=== PATIENT | female | born 1990 | race Caucasian/White ===

== ENCOUNTER 2019-07-13 19:32 | Observation (INO) | payer BC, SELFPAY ==
[2019-07-13 20:15] VITALS: BMI 30.9
--- NOTE | 2019-07-13 22:40 | OBADM ---
This patient, Payton Gonsalves, admitted to the OB room Labor/Delivery/Recovery 105 for observation. Patient/family oriented to hospital policies and general routines including ID bracelet, bed and alarms, visiting hours, pain management, procedures, bathroom and other care routines, personal items, smoking policy, room service/diet, and visiting hours. Patient/Family are encouraged to report perceived risks to care and to ask questions if they do not understand what they are told or what they should do.
--- NOTE | 2019-07-15 13:25 | PM.OBTRLD ---
OB - Triage/Final Diagnosis Visit Information Reason for evaluation: threatened labor
== END 2019-07-13 22:15 | disposition home or self-care (01) ==
PROVIDERS: Admitting Provider Obstetrics & Gynecology; Visit Provider Obstetrics & Gynecology
DX: O47.9 False labor, unspecified (principal); Z3A.00 Weeks of gestation of pregnancy not specified
CPT/HCPCS: G0378; G0379

== ENCOUNTER 2019-07-15 00:03 | Inpatient (IN) | payer BC, SELFPAY ==
[2019-07-15] VITALS (31 sets, daily range): BP systolic 112–134; BP diastolic 53–105; PULSE 70–110; RESP 14–18; TEMP 36.9–37.4; O2SAT 98–100
[2019-07-15] MEDS: LACTATED RINGERS 1,000 ML 125 ML IV CONT ×2 (00:30→01:00)
[2019-07-15 00:41] LABS: Basophils Percent Auto 0.2 % (0.2-1.2); Eosinophils Absolute Auto 0.2 K/mm3 (0-0.3); Eosinophils Percent Auto 1.5 % (0-4.4); Hematocrit 32.5 % (37.0-47.0); Hemoglobin 10.7 g/dL (12.0-15.0); Immature Granulocyte Absolute 0.03 K/mm3 (0.00-0.031); Immature Granulocyte Percent A 0.3 % (0-0.5); Lymphocytes Percent Auto 18.3 % (18.3-44.2); Mean Corpuscular HGB Conc 32.9 g/dl (32-36); Mean Corpuscular Hemoglobin 28.5 pg (26-34); Mean Corpuscular Volume 86.4 fl (80-100); Mean Platelet Volume 11.6 fl (7.4-10.4); Monocytes Absolute Auto 0.6 K/mm3 (0.1-0.6); Monocytes Percent Auto 5.9 % (2.6-8.5); Neutrophils Absolute Auto 7.7 K/mm3 (1.3-6.7); Neutrophils Percent Auto 73.8 % (45.5-73.1); Platelet Count Result 216 k/mm3 (150-375); Red Blood Count 3.76 M/mm3 (4.2-5.4); Red Cell Distribution Width 13.1 % (11.5-14.5); White Blood Count 10.4 K/mm3 (4.5-10.0)
--- NOTE | 2019-07-15 00:59 | WPDANESEPP ---
Anes - Eval Pre Procedure Procedure: labor epidural Date/Time: 07/15/19 00:59 Surgeon: Chuck Preop Diagnosis: Labor pain Pre Op Diagnosis: contractions Patient Data Age: 29 Gender: F Height: Weight: Last Vital Signs Temp 37.2 C 07/15/19 00:53 Pulse 105 H 07/15/19 00:58 BP 132/72 07/15/19 00:58 Pulse Ox 100 07/15/19 00:47 Allergies Allergy/AdvReac Type Severity Reaction Status Date / Time amoxicillin Allergy Unknown Verified 07/02/19 12:35 Penicillins Allergy Unknown Verified 07/02/19 12:35 Sulfa (Sulfonamide Allergy Unknown Verified 07/02/19 12:35 Antibiotics) Home Medications Medication Instructions Recorded Confirmed Type PNV cmb#95-ferrous fumarate-FA 1 tablet PO DAILY 07/02/19 07/13/19 History [] Laboratory Tests 07/15/19 07/15/19 00:28 00:28 WBC 10.4 K/mm3 H K/mm3 (4.5-10.0) RBC 3.76 M/mm3 L M/mm3 (4.2-5.4) Hgb 10.7 g/dL L g/dL (12.0-15.0) Hct 32.5 % L % (37.0-47.0) MCV 86.4 fl fl (80-100) MCH 28.5 pg pg (26-34) MCHC 32.9 g/dl g/dl (32-36) RDW 13.1 % % (11.5-14.5) Plt Count 216 k/mm3 k/mm3 (150-375) MPV 11.6 fl H fl (7.4-10.4) Immature Gran % (Auto) 0.3 % % (0-0.5) Neut % (Auto) 73.8 % H % (45.5-73.1) Lymph % (Auto) 18.3 % % (18.3-44.2) [place] % (Auto) 5.9 % % (2.6-8.5) Eos % (Auto) 1.5 % % (0-4.4) Baso % (Auto) 0.2 % % (0.2-1.2) Lymph # (Auto) 1.90 K/mm3 K/mm3 (0.9-3.2) [place] # (Auto) 0.6 K/mm3 K/mm3 (0.1-0.6) Eos # (Auto) 0.2 K/mm3 K/mm3 (0-0.3) Baso # (Auto) 0.0 K/mm3 K/mm3 (0.0-0.1) Abs Immat Gran (auto) 0.03 K/mm3 K/mm3 (0.00-0.031) Absolute Neuts (auto) 7.7 K/mm3 H K/mm3 (1.3-6.7) Absolute Nucleated RBC 0.0 K/mm3 K/mm3 (0.0-0.012) Nucleated RBC % 0.0 % % (0.0-0.2) RPR Pending Patient hx anesthesia problems: none Family hx anesthesia problems: none PMFSH Family History Family History (Updated 07/02/19 @ 12:56 by Ekaterina Escobar RN) Father Diabetes mellitus Mother Breast cancer Grandparent Uterine cancer Social History Social History Substance use: never Gender identity (if verbalized by the patient): Female Spiritual care concerns: No Exam Day of Procedure 07/15/19 00:59
--- NOTE | 2019-07-15 02:31 | PM.OBPRVD ---
OB - Delivery Note Procedure Delivery date: 07/15/19 Route of delivery: Laceration description: Vaginal - 1st Degree Delivery repair: chromic Specimen: Yes (placenta for MSF) Estimated blood loss (mL): 200 Anesthesia type: Epidural Disposition: floor Baby Weeks of gestation at delivery: 38 Infant gender: Female Weight (pounds): 5 Weight (ounces): 13 presentation: vertex Placenta delivery description: Spontaneous cord vessel description: 3 Vessels score one minute: 7 score five minutes: 9 Narrative: Patient was prepped and draped in the usual manner for this procedure. Maternal expulsive efforts readily delivered vertex. Suction of naso-oropharynx. Rest of the baby was then delivered. Cord was clamped and cut. Placenta delivered spontaneously. Cervix shows sign and vulva were inspected. First-degree vaginal laceration was approximately using 2 0 chromic in a running interlocking manner. There was no significant bleeding uterus is well contracted and this was the termination of this procedure.
[2019-07-15] MEDS: IBUPROFEN 600 MG TABLET PO ×2 (07:21→20:48)
[2019-07-15 09:00] LABS: Rapid Plasma Reagin Non-Reactive (NonReactive)
[2019-07-15] MEDS: MEASLES,MUMPS,RUBELLA VACCINE 0.5 ML VIAL (11:33)
--- NOTE | 2019-07-15 13:31 | PM.OBPNVD ---
OB - PN: Subj Subjective Date/time seen: 07/15/19 13:31 Payton is a 29yo now P1001 s/p @ 37.6wks. Today she is doing great. She denies any issues. She reports mild vaginal discomfort but improved with tylenol/ibuprofen. She reports tolerating regular diet. ambulating, voiding, passing flatus. Vaginal bleeding is normal. She is bottle feeding. OB - PN: Obj Data Labs CBC & Chem 7: 07/15/19 00:28 Labs: Laboratory Results - last 24 hr 07/15/19 07/15/19 07/15/19 00:28 00:28 00:28 WBC 10.4 H RBC 3.76 L Hgb 10.7 L Hct 32.5 L MCV 86.4 MCH 28.5 MCHC 32.9 RDW 13.1 Plt Count 216 MPV 11.6 H Immature Gran % (Auto) 0.3 Neut % (Auto) 73.8 H Lymph % (Auto) 18.3 [place] % (Auto) 5.9 Eos % (Auto) 1.5 Baso % (Auto) 0.2 Lymph # (Auto) 1.90 [place] # (Auto) 0.6 Eos # (Auto) 0.2 Baso # (Auto) 0.0 Abs Immat Gran (auto) 0.03 Absolute Neuts (auto) 7.7 H Absolute Nucleated RBC 0.0 Nucleated RBC % 0.0 RPR Non-reactive Blood Type O Positive Antibody Screen Negative OB - PN A/P Assessment and Plan (1) : Code(s): Z34.90 - Encounter for supervision of normal , unspecified, unspecified trimester Status: Acute Assessment and Plan: PPD#0 - Routine care - Meeting appropriate milestones - Labs pending in AM - Vitals stable - Tylenol/Ibuprofen PRN - Bottle feeding - Anticipate d/c home on PPD#1-2 Time Spent With Patient Time: Total time spent is greater than 50% in coordination of care (as documented) at patient's floor/unit and/or counseling patient: Review of Systems Constitutional: Constitutional: Denies chills Cardiovascular: Cardiovascular: Denies rapid heart rate Respiratory: Respiratory: Denies cough and Denies dyspnea Gastrointestinal: Gastrointestinal: Denies constipation, Denies nausea and Denies vomiting Genitourinary: Genitourinary: Reports as per HPI Integumentary/Breasts: Skin/Breast: Reports as per HPI Neurologic: Denies headache(s)
[2019-07-16] MEDS: IBUPROFEN 600 MG TABLET PO ×2 (03:41→09:32)
[2019-07-16 04:29] LABS: Hemoglobin 9.3 g/dL (12.0-15.0)
[2019-07-16] MEDS: BENZOCAINE 20% AER SPR (*SP) 56 GM CAN 1 SPRAY TOPICAL (05:00)
[2019-07-16] MEDS: WITCH HAZEL 40 PADS 1 PAD TOPICAL (05:00)
[2019-07-16 07:24] VITALS: BP 110/81; PULSE 75; RESP 18; TEMP 36.9; O2SAT 98
--- NOTE | 2019-07-16 08:31 | WPDANLDPN2 ---
Anes-Prog Note L&D Date/Time: 07/16/19 08:31 Comfortable throughout: labor and delivery Neuraxial method: epidural Epidural/Spinal procedure site: clean & non-tender Neuro status: Neuro function grossly intact. Cardiovascular status: normal Respiratory status: normal Airway patency: baseline Mental status: baseline Post-Op hydration status: normal Vital Signs: Last Vital Signs Temp 36.9 C 07/16/19 07:24 Pulse 75 07/16/19 07:24 Resp 18 07/16/19 07:24 BP 110/81 07/16/19 07:24 Pulse Ox 98 07/16/19 07:24 Patient feedback: Patient satisfied with anesthetic care.
--- NOTE | 2019-07-16 09:09 | PM.OBDSVD ---
DS: Diagnosis Admitting Diagnosis Admitting Diagnosis: Encounter for supervision of normal , unspecified, unspecified trimester OB - DS: Summary OB Procedures : None OB Procedures Intrapartum: Spontaneous Vag Delivery OB Procedures: : None Time Spent with Patient Time attestation: Total time spent providing and/or coordinating discharge services: DS: Data Data Completed and Pending Pending studies at discharge: Pending at discharge 07/15/19 02:23 Surgical [PTH] Routine Labs on day of discharge: Labs from last 24 hours 07/16/19 03:51 Hgb 9.3 L Hct 29.0 L Discharge Plan Discharge Attending physician on discharge: Isiah Woods Discharging Clinician: Isiah Woods Patient Disposition: Home, Self-Care Activity: as tolerated Diet: as tolerated Patient Instructions: Antibiotic Form Stand Alone Forms: General Discharge Information Follow-up/Referrals: Isiah Woods MD [Physician] - 3 Weeks Discharge Medications: Continued PNV cmb#95-ferrous fumarate-FA [] 28 mg iron- 800 mcg Tablet 1 tablet PO DAILY RF: 0 Date of admission: 07/15/19 00:03 Primary Care Provider: UNKNOWN,DOCTOR Admitting Provider: Isiah Woods Attending physician on admission: Isiah Woods
[2019-07-16] MEDS: DOCUSATE SODIUM 100 MG CAPSULE PO (09:32)
[2019-07-16] MEDS: POLYSACCHARIDE IRON COMPLEX 150 MG CAPSULE PO (09:32)
[2019-07-17 10:01] VITALS: BP 124/75; PULSE 69; RESP 16; TEMP 36.6
== END 2019-07-16 14:33 | disposition home or self-care (01) | DRG 807 ==
LOC: ANHLDR 00:28 → ANHOB2 04:59
PROVIDERS: Admitting Provider Obstetrics & Gynecology; Visit Provider Obstetrics & Gynecology
DX: O77.0 Labor and delivery complicated by meconium in amniotic fluid (principal); Z37.0 Single live birth; Z3A.37 37 weeks gestation of pregnancy; O70.0 First degree perineal laceration during delivery
CPT/HCPCS: 36415; 85014; 85018; 85025; 86592; 86850; 86900; 86901; 88307; 90710; A9270; J2590; J2795; J7120